=== PATIENT | female | born 1970 | race Caucasian/White ===

== ENCOUNTER 2018-02-15 13:35 | Outpatient (CLI) | payer OTHER | END 2018-02-15 13:36 | disposition home or self-care (01) | LOC: BICMAMMO 13:35 | PROVIDERS: ATTEND Family Medicine | DX: Z12.31 Encounter for screening mammogram for malignant neoplasm of breast (principal) | CPT/HCPCS: 77063; 77067 ==

== ENCOUNTER 2019-05-12 13:54 | Outpatient (CLI) | payer OTHER, SELFPAY ==
--- NOTE | 2019-05-12 14:43 | MMO ---
Bilateral MAMMO Bilat Screen [facility]. CLINICAL HISTORY: Patient is 48 years old and is seen for screening. The patient has no family history of breast cancer. The patient has no personal history of cancer. The patient has a history of bilateral Implants in 2013. VIEWS: The views performed were: bilateral craniocaudal; bilateral mediolateral oblique; and bilateral Implant displaced with tomosynthesis. FILMS COMPARED: The present examination has been compared to prior imaging studies performed at [facility] on 09/09/2009, 12/22/2015 and 02/15/2018, and at [facility] on 06/04/2013. MAMMOGRAM FINDINGS: There are scattered fibroglandular densities. Normal implants are present. There are no suspicious masses, suspicious calcifications, or new areas of architectural distortion. IMPRESSION: THERE IS NO MAMMOGRAPHIC EVIDENCE OF MALIGNANCY. A ROUTINE FOLLOW-UP MAMMOGRAM IN 1 YEAR IS RECOMMENDED. THE RESULTS OF THIS EXAM WERE SENT TO THE PATIENT. ACR BI-RADS Category 2 - Benign finding MAMMOGRAPHY NOTE: 1. A negative mammogram report should not delay a biopsy if a dominant of clinically suspicious mass is present. 2. Approximately 10% to 15% of breast cancers are not detected by mammography. 3. Adenosis and dense breasts may obscure an underlying neoplasm.
== END 2019-05-12 13:55 | disposition home or self-care (01) ==
LOC: BICMAMMO 13:54
PROVIDERS: ATTEND Family Medicine
DX: Z12.31 Encounter for screening mammogram for malignant neoplasm of breast (principal); Z98.82 Breast implant status
CPT/HCPCS: 77063; 77067

== ENCOUNTER 2021-03-24 10:34 | Observation (INO) | payer OTHER ==
[2021-03-24] MEDS ORDERED: Ondansetron PF 4 MG/2 ML Vial ONE (10:58)
[2021-03-24] MEDS ORDERED: Morphine 4 MG/ML VIAL ONE ×2 (10:58→11:48)
[2021-03-24] MEDS ORDERED: Ketorolac Tromethamine 30 MG/ML VIAL ONE (11:25)
[2021-03-24 11:47] LABS: ALT (SGPT) 37 U/L (8-55); AST (SGOT) 31 U/L (5-34); Albumin 4.2 g/dL (3.5-5.0); Alkaline Phosphatase 59 U/L (40-110); Anion Gap 15 mmol/L (10-20); BUN (Urea Nitrogen) 18 mg/dL (7.0-18.7); Bilirubin, Total 0.4 mg/dL (0.2-1.2); Calc. Creatinine Clearance 0 mL/min (70-130); Calcium 9.5 mg/dL (7.8-10.44); Carbon Dioxide 20 mmol/L (22-29); Chloride 106 mmol/L (98-107); Globulin 2.4 g/dL (2.4-3.5); Glucose 132 mg/dL (70-105); Lipase 34 U/L (8-78); Potassium 4.3 mmol/L (3.5-5.1); Protein, Total 6.6 g/dL (6.0-8.3); Sodium 137 mmol/L (136-145)
[2021-03-24] MEDS ORDERED: Fentanyl 100 MCG/2 ML VIAL ONE ×3 (11:51→14:09)
[2021-03-24 12:25] LABS: #Basophils 0.1 thou/uL (0.0-0.2); #Eosinphils 0.1 thou/uL (0.0-0.7); #Lymphocytes 2.1 thou/uL (1.20-3.40); #Monocytes 0.5 thou/uL (0.11-0.59); #Neutrophils 4.4 thou/uL (1.40-6.50); %Basophils 0.8 % (0.0-1.0); %Eosinophils 1.7 % (0.0-10.0); %Lymphocytes 29.3 % (21.0-51.0); %Monocytes 7.3 % (0.0-10.0); Hemoglobin 13.5 g/dL (12.0-16.0); Mean Corpuscular HGB CONC 34.4 g/dL (32.0-36.0); Mean Corpuscular Hemoglobin 30.2 pg (27.0-31.0); Mean Corpuscular Volume 87.6 fL (78.0-98.0); Mean Platelet Volume 7.6 fL (7.4-10.4); Platelet Count 238 thou/uL (130-400); RBC Distribution Width 11.6 % (11.5-14.5); Red Blood Cell (RBC) Count 4.48 mill/uL (4.20-5.40); White Blood Cell (WBC) Count 7.2 thou/uL (4.8-10.8)
[2021-03-24 12:44] LABS: PTT 26.1 sec (22.9-36.1); Prothrombin Time 13.3 sec (12.0-14.7)
[2021-03-24] MEDS ORDERED: Bisacodyl 5 MG TAB PO PRN (13:27)
[2021-03-24] MEDS ORDERED: Ondansetron PF 4 MG/2 ML Vial IVP PRN (13:27)
[2021-03-24] MEDS ORDERED: Fentanyl 100 MCG/2 ML VIAL SLOW IVP PRN (13:49)
[2021-03-24] MEDS: Acetaminophen 325 MG TAB PO PRN ×2 (16:23→22:03)
[2021-03-24 16:33] LABS: Hemoglobin 13.1 g/dL (12.0-16.0)
[2021-03-24 17:05] VITALS: BMI 32.8
[2021-03-24 22:26] LABS: Hemoglobin 12.6 g/dL (12.0-16.0)
[2021-03-25 01:37] LABS: SARS-CoV-2 PCR by NAA Not Detected (NotDetected)
[2021-03-25 06:48] LABS: #Eosinphils 0.2 thou/uL (0.0-0.7); #Lymphocytes 2.3 thou/uL (1.20-3.40); #Monocytes 0.5 thou/uL (0.11-0.59); #Neutrophils 3.8 thou/uL (1.40-6.50); %Basophils 0.7 % (0.0-1.0); %Eosinophils 2.4 % (0.0-10.0); %Lymphocytes 33.9 % (21.0-51.0); %Monocytes 6.9 % (0.0-10.0); %Neutrophils 56.1 % (42.0-75.0); Mean Corpuscular HGB CONC 33.9 g/dL (32.0-36.0); Mean Corpuscular Volume 88.3 fL (78.0-98.0); Mean Platelet Volume 7.4 fL (7.4-10.4); Platelet Count 219 thou/uL (130-400); RBC Distribution Width 11.6 % (11.5-14.5); Red Blood Cell (RBC) Count 4.35 mill/uL (4.20-5.40); White Blood Cell (WBC) Count 6.8 thou/uL (4.8-10.8)
[2021-03-25 07:06] LABS: Anion Gap 12 mmol/L (10-20); BUN (Urea Nitrogen) 12 mg/dL (7.0-18.7); Calc. Creatinine Clearance 134 mL/min (70-130); Calcium 8.7 mg/dL (7.8-10.44); Carbon Dioxide 24 mmol/L (22-29); Chloride 108 mmol/L (98-107); Glucose 101 mg/dL (70-105); Potassium 4.2 mmol/L (3.5-5.1); Sodium 140 mmol/L (136-145)
[2021-03-25 08:30] VITALS: BP 111/64; TEMP 97.6
== END 2021-03-25 09:45 | disposition home or self-care (01) ==
LOC: ERS 10:34 → ONC 13:07
PROVIDERS: ADMIT Internal Medicine; ATTEND Internal Medicine
DX: S30.1XXA Contusion of abdominal wall, initial encounter (principal); K80.20 Calculus of gallbladder without cholecystitis without obstruction; E78.5 Hyperlipidemia, unspecified; Z79.899 Other long term (current) drug therapy; Z88.2 Allergy status to sulfonamides; Z88.8 Allergy status to other drugs, medicaments and biological substances; Z20.822 Contact with and (suspected) exposure to COVID-19
CPT/HCPCS: 36415; 74177; 80048; 80053; 83690; 85025; 85610; 85730; 87635; 96374; 96375; 96376; G0378; J1885; J2270; J2405; J3010; U0003; U0005

== ENCOUNTER 2021-07-08 10:04 | Day surgery (SDC) | payer OTHER ==
[2021-07-07 12:06] VITALS: BMI 31.6
[2021-07-08] MEDS ORDERED: Bupivacaine 0.25% HCL 30 ML VIAL ONE (12:01)
[2021-07-08] MEDS ORDERED: Lidocaine 1% w/Epinephrine 1:100K 30 ML VIAL ONE (12:01)
[2021-07-08] MEDS ORDERED: Fentanyl 100 MCG/2 ML VIAL ONE ×5 (12:08→14:09)
[2021-07-08] MEDS ORDERED: HYDROmorphone 2 MG/ML VIAL ONE (12:09)
[2021-07-08] MEDS ORDERED: Lidocaine 1% PF 5 ML VIAL ONE (12:14)
[2021-07-08] MEDS ORDERED: Dexamethasone 20 MG/5 ML VIAL ONE (12:14)
[2021-07-08] MEDS ORDERED: PROPOFOL 200 MG/20 ML VIAL ONE (12:14)
[2021-07-08] MEDS ORDERED: Rocuronium Bromide 10 MG/ML (10ML VIAL) ONE (12:14)
[2021-07-08] MEDS ORDERED: Glycopyrrolate 0.2 MG/ML 5 ML SYRINGE ONE (12:14)
[2021-07-08] MEDS ORDERED: Ondansetron PF 4 MG/2 ML Vial ONE ×2 (12:14→14:33)
[2021-07-08] MEDS ORDERED: Promethazine HCl 25 MG/ML VIAL ONE (16:14)
== END 2021-07-08 16:35 | disposition home or self-care (01) ==
LOC: SDC 10:04
PROVIDERS: ATTEND Surgery
PROC: 0WUF4JZ Supplement Abdominal Wall with Synthetic Substitute, Percutaneous Endoscopic Approach (ICD-10-PCS; principal; 2021-07-08)
DX: K43.9 Ventral hernia without obstruction or gangrene (principal); K42.9 Umbilical hernia without obstruction or gangrene; K66.0 Peritoneal adhesions (postprocedural) (postinfection); E66.9 Obesity, unspecified; Z68.31 Body mass index [BMI] 31.0-31.9, adult; Z79.899 Other long term (current) drug therapy; Z88.2 Allergy status to sulfonamides; Z88.8 Allergy status to other drugs, medicaments and biological substances
CPT/HCPCS: C1781; J0690; J1100; J1170; J2405; J2550; J2704; J3010; S0020

== ENCOUNTER 2022-12-06 14:19 | Outpatient (CLI) | payer BC | END 2022-12-06 14:20 | disposition home or self-care (01) | LOC: BICMAMMO 14:19 | PROVIDERS: ATTEND Family Medicine | DX: Z12.31 Encounter for screening mammogram for malignant neoplasm of breast (principal); Z98.82 Breast implant status | CPT/HCPCS: 77063; 77067 ==